=== PATIENT | male | born 1950 | race African-American/Black ===

== ENCOUNTER 2019-08-23 12:25 | Emergency (ER) | payer BC, OTHER ==
[~2019-08-23] VITALS: Ht 182.9 cm; Wt 118.0 kg
[2019-08-23 12:53] LABS: BASOPHILS % 0.7 % (0.0-2.0); EOSINOPHILS % 3.6 % (0.0-5.0); HEMATOCRIT. 48.8 % (42.0-52.0); HEMOGLOBIN. 16.9 g/dL (14.0-18.0); LYMPHOCYTES % 14.6 % (20.0-50.0); MEAN CORPUSCULAR HEMOGLOBIN 31.8 pg (28.0-32.0); MEAN CORPUSCULAR VOLUME 91.9 fL (80.0-94.0); MEAN PLATELET VOLUME 8.7 fl (7.4-10.4); MONOCYTES % 10.3 % (2.0-8.0); NEUTROPHILS % 70.8 % (40.0-76.0); PLATELET 120 x1000/uL (130-400); RED BLOOD CELL COUNT 5.31 mill/uL (4.7-6.1); RED CELL DISTRIBUTION WIDTH 15.1 % (11.6-14.6)
[2019-08-23 13:00] LABS: CHLORIDE 103 mEq/L (98-107)
[2019-08-23 23:00] VITALS: BP 123/71
[2019-08-23] MEDS ORDERED: PANTOPRAZOLE 40MG DR TABLET PO SCH (23:15)
[2019-08-23] MEDS ORDERED: MVI, ADULT NO.1 10 ML, FOLIC ACID 1 MG, THIAMINE HCL 100 MG in SODIUM CHLORIDE 0.9% 1,0... IV SCH ×4 (23:15)
[2019-08-23] MEDS ORDERED: CHLORDIAZEPOXIDE 25MG CAPSULE PO PRN (23:15)
[2019-08-23] MEDS ORDERED: MAGNESIUM/ALUMINUM HYDROXIDE/SIMETHICONE 30ML UDC PO PRN (23:15)
[2019-08-23] MEDS ORDERED: IPRATROPIUM/ALBUTEROL 0.5-3(2.5)MG/3ML NEB NEB PRN (23:15)
[2019-08-23] MEDS ORDERED: DOCUSATE SODIUM 100MG CAPSULE PO PRN (23:15)
[2019-08-23] MEDS ORDERED: ACETAMINOPHEN 325MG TABLET PO PRN (23:15)
[2019-08-24] MEDS ORDERED: ASPIRIN 325MG EC TABLET PO ONE (09:00)
[2019-08-24] MEDS ORDERED: AMLODIPINE 10MG TABLET PO SCH (09:00)
[2019-08-24] MEDS ORDERED: FLUTICASONE/VILANTEROL 200-25 BLST.W.DEV ORI SCH (09:00)
[2019-08-24] MEDS ORDERED: SPIRONOLACTONE 50MG TABLET PO SCH (09:00)
[2019-08-24] MEDS ORDERED: ENOXAPARIN 40MG/0.4ML SYR SUBCUT SCH (09:00)
[2019-08-24] MEDS ORDERED: FLUTICASONE PROPIONATE 50MCG/SPRAY BOTTLE BOTHNSTRLS SCH (09:00)
[2019-08-24] MEDS ORDERED: ATORVASTATIN CALCIUM 40MG TABLET PO SCH (21:00)
== END 2019-08-24 00:17 | disposition left against medical advice (07) ==
LOC: ER 12:42 → EDBEDREQ 19:31 → ER 08-24 00:17 → CANBEDREQ 08-24 01:28
DX: R07.89 Other chest pain (principal); I11.0 Hypertensive heart disease with heart failure; I50.9 Heart failure, unspecified; J45.909 Unspecified asthma, uncomplicated; E78.00 Pure hypercholesterolemia, unspecified; Z88.2 Allergy status to sulfonamides; Z88.1 Allergy status to other antibiotic agents
CPT/HCPCS: 36415; 71045; 80053; 83880; 84484; 85025; 93005; 99285; J3411; J3490; J7030